=== PATIENT | male | born 1935 | race Caucasian/White ===

== ENCOUNTER 2020-03-04 13:35 | Outpatient (RCR) | payer MEDICARE, SELFPAY ==
--- NOTE | 2020-06-22 | XR_ITS ---
EXAMINATION: XR CHEST CLINICAL INFORMATION: Shortness of breath COMPARISON: None TECHNIQUE: Frontal view of the chest was obtained. FINDINGS: The right lung is hypoexpanded. The left lung is well-expanded. There is prominent bilateral interstitial markings. There is right lower lobe opacity likely pleural effusion with underlying atelectasis. The effusion or thickening extends to the right lung apex. Heart size and pulmonary vascularity is normal. Mild mediastinal shift to the right is noted. There is right central port catheter with its tip in the distal SVC. No gross bony abnormality except for mild spondylosis. XR/XR chest 1V IMPRESSION: Hypoexpanded right lung with ipsilateral mediastinal shift. There is a moderate pleural effusion and/or pleural thickening extending of the medial right lung apex. There is bilateral increase interstitial markings. There is a right central port with its tip in the distal SVC.
--- NOTE | 2020-06-23 | US_ITS ---
PROCEDURE: US CHEST, LEFT CT-GUIDED THORACENTESIS, LEFT CLINICAL INFORMATION: Right pleural effusion on chest x-ray of 06/22/2020. COMPARISON: 06/22/2020 TECHNIQUE: Ultrasound of the left chest and CT-guided left thoracentesis. This CT examination was performed using dose optimization techniques as appropriate, variously including the following: *Automated exposure control. *Adjustment of mA and/or kV according to patient size (this includes techniques or standardized protocols for targeted exams where dose is matched to indication/reason for exam; i.e. extremities or head). *Use of iterative reconstruction technique. DLP: 440 FINDINGS/PROCEDURE: Ultrasound of the left chest was performed which demonstrated some thickened pleura as well as a small amount of fluid with debris. I did not feel that it would be safe to perform thoracentesis under ultrasound and I cannot tell what may be gelatinous material versus free fluid with the debris that was present. Patient was brought to CT at which time there is seen to be minimal right pleural fluid with pleural thickening. There is noted to be a [id number] left pleural effusion which did not show on the chest x-ray. Informed consent was obtained from the patient's daughter prior to the procedure. During this process, the procedure and potential alternatives were explained, along with the intended outcome and benefits. The risks of the procedure, as well as the risk of not doing the procedure, were discussed. The patient's daughter was given the opportunity to ask questions regarding the procedure and appeared competent to make medical decisions. A signed consent form which documents this discussion was placed in the medical record. Using sterile technique and CT guidance, a 5-Wolof Yueh needle was directed from a posterior approach into the left pleural space. A total of 725 mL of non-clotting sanguinous fluid was removed with samples sent for laboratory studies including cytology. Patient tolerated the procedure without difficulty. Right internal jugular port catheter seen in place. There are calcified and noncalcified diffuse bilateral pleural plaques. There is some bronchial wall thickening and mild symmetrical bronchiectasis at the lung bases bilaterally. There are numerous bilateral nodules present. Within the left upper lobe, there is an 8 mm noncalcified nodule density on image 187 of 516. There is an 8 mm noncalcified nodule seen within the left upper lobe on image 202 of 516. There is a 1 cm density seen within the left upper lobe on image 155 of 516. There is a 1.5 cm visceral pleural-based lesion left lower lobe. There are numerous other smaller left lower lobe nodular lesions. Heart normal size. No thoracic aortic aneurysm. Coronary artery calcifications are present. There is mediastinal and hilar lymphadenopathy bilaterally. US/US chest IMPRESSION: Left thoracentesis with removal of 725 mL of non-clotting sanguinous fluid.
[2020-06-23 12:54] LABS: Hematocrit 34.2 % (42-52); Hemoglobin 10.6 g/dl (14.0-18.0); Mean Corpuscular Hemoglobin 23.7 pg (27.0-33.0); Mean Corpuscular Volume 76.3 fL (80-98); Mean Platelet Volume 8.7 fL (9.4-12.4); Platelet Count 273 X10*3/uL (160-400); Red Blood Count 4.48 X10*6/uL (4.60-5.80); Red Cell Distribution Width 15.2 % (11.0-16.0); White Blood Count 7.2 X10*3/uL (4.8-10.8)
[2020-06-23 13:03] LABS: INTERNATIONAL NORM RATIO 1.1 (0.9-1.1); Prothrombin Time 13.2 SEC (10.8-13.0)
[2020-06-23 16:29] LABS: MN% 78.4 %; PMN% 21.6 %; RBC Pleural Fluid 1.599 X10*3/uL; WBC Pleural Fluid 3.723 X10*3/uL
[2020-06-23 18:38] LABS: Lymphocytes Pleural Fluid 32 %; Monocytes Pleural Fluid 38 %; Neutrophils Pleural Fluid 16 %; Other Cells Plerual Fl 14 %
[2020-06-23 20:14] LABS: BF Shift QC OK YES; Man Diluent Bkgrd OK YES
[2020-06-24 11:54] LABS: Albumin Pleural Fluid 3.3; Total Protein Pleural Fluid 5.5
[2020-06-24 11:55] LABS: Amylase Pleural Fluid 39; Glucose Pleural Fluid 8; LDH Pleural Fluid 1767; pH Pleural Fluid 7.29
--- NOTE | 2020-06-28 11:45 | P.DS_ITS ---
DS: Providers Provider Date of Service: 06/29/20 DS: Medications Discharge Medications Home Medications: Previous Rx's Medication Instructions Recorded acetaminophen 650 mg PO Q4H PRN #30 tab 06/28/20 aspirin 81 mg PO DAILY@0900 #30 tab 06/28/20 atorvastatin 10 mg PO DAILY@1600 #30 tab 06/28/20 bisacodyl [Gentle Laxative 10 mg DC DAILY PRN #30 ea 06/28/20 (bisacodyl)] cyanocobalamin (vitamin B-12) 1,000 mcg IM Q30D@1600 #30 ml 06/28/20 divalproex 250 mg PO BID@0900,1700 #30 tab 06/28/20 escitalopram oxalate 5 mg PO DAILY@0800 #30 tab 06/28/20 folic acid 1 mg PO DAILY@0800 #30 tab 06/28/20 heparin, porcine (PF) 500 unit IVFLUSH ONCE PRE 06/28/20 DISCHARGE #30 ml heparin, porcine (PF) [Heparin 50 units IVFLUSH DAILY@1000 #30 ml 06/28/20 LockFlush(Porcine)(PF)] ibuprofen 400 mg PO Q6H PRN #30 tab 06/28/20 ondansetron 4 mg TRANSLINGUAL Q8H PRN #30 tab 06/28/20 polyethylene glycol 3350 17 g PO DAILY@1000 #30 ea 06/28/20 sennosides [Senna Lax] 8.6 mg PO BEDTIME PRN #30 tab 06/28/20 sodium chloride 0.9 % (flush) 5 ml IVFLUSH DAILY@1000 #30 ml 06/28/20 [Normal Saline Flush] sodium chloride 0.9 % (flush) 5 ml IVFLUSH ONCE PRE DISCHARGE 06/28/20 [Normal Saline Flush] #30 ml thiamine mononitrate (vit B1) 100 mg PO DAILY@0800 #30 tab 06/28/20 DS: Summary Hospital Course Hospital Course: Mr. 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 Mr. Randhawa had a fairly uneventful stay with us with the following exceptions: Squamous cell CA: January 12, 2020 he had an excision of a left temporal squamous cell carcinoma by Dr. Williamson. Effusion: In early June 2020 he developed shortness of breath and a new oxygen requirement. His CXR showed an effusion and he had a subsequent CT- guided thoracentesis showing a fluid strongly consistent with an exudate. The CT also revealed a number of abnormalities in the form of nodules. No prior studies were available. No notable cells were found on pathology. The patient is followed by Dr. Rajesh Nixon for his mesothelioma and has a port for past chemo treatment. Dr. Nixon was informed of the new effusion and noted that the patient likely has few options if his disease is progressing. The patient and daughter did have a virtual visit with Dr. Oliveros several months ago. Repeating this may be of use to determine what next steps regarding the patient might be. If the patient has recurrent effusions he may benefit from a pleurax catheter. The patient does need his catheter flushed monthly. Last flush on 06/14/20. Time Spent with Patient Time attestation: Total time spent providing and/or coordinating discharge services: Discharge coordination time: Greater than 30 minutes DS: Data Data Completed and Pending Labs on day of discharge: Laboratory Tests 06/23/20 06/23/20 06/23/20 12:41 12:41 15:45 WBC 7.2 RBC 4.48 L Hgb 10.6 L Hct 34.2 L MCV 76.3 L MCH 23.7 L MCHC 31.0 RDW 15.2 Plt Count 273 MPV 8.7 L Absolute Nucleated RBC 0.000 Nucleated RBC % (auto) 0.0 PT 13.2 H INR 1.1 Pleural pH Pleural WBC Pleural RBC Pleural Neutrophils Pleural Lymphocytes Pleural Monocytes Pleural Other Cells Pleural Total Protein 5.5 Pleural Albumin 3.3 Pleural LDH 1767 Pleural Glucose 8 Pleural Amylase 39 06/23/20 06/23/20 15:45 15:45 WBC RBC Hgb Hct MCV MCH MCHC RDW Plt Count MPV Absolute Nucleated RBC Nucleated RBC % (auto) PT INR Pleural pH 7.29 Pleural WBC 3.723 Pleural RBC 1.599 Pleural Neutrophils 16 Pleural Lymphocytes 32 Pleural Monocytes 38 Pleural Other Cells 14 Pleural Total Protein Pleural Albumin Pleural LDH Pleural Glucose Pleural Amylase Discharge Plan Discharge Attending provider: Rustam Oneil Additional Instructions: see summary sheet Port needs to be flushed monthly. Last performed 06/14/20 Medications: New sennosides [Senna Lax] 8.6 mg Tablet 8.6 mg PO BEDTIME PRN (Reason: Constipation) Qty: 30 RF: 0 acetaminophen 325 mg Tablet 650 mg PO Q4H PRN (Reason: Pain, Mild (Pain Scale 1-3)) Qty: 30 RF: 0 divalproex 250 mg Tablet,Delayed Release (Dr/Ec) 250 mg PO BID@0900,1700 Qty: 30 RF: 0 polyethylene glycol 3350 17 gram Powder In Packet 17 g PO DAILY@1000 Qty: 30 RF: 0 atorvastatin 10 mg Tablet 10 mg PO DAILY@1600 Qty: 30 RF: 0 bisacodyl [Gentle Laxative (bisacodyl)] 10 mg Suppository 10 mg DC DAILY PRN (Reason: Constipation) Qty: 30 RF: 0 cyanocobalamin (vitamin B-12) 1,000 mcg/mL Solution 1,000 mcg IM Q30D@1600 Qty: 30 RF: 0 ibuprofen 400 mg Tablet 400 mg PO Q6H PRN (Reason: Pain, Moderate (Pain Scale 4-6) Qty: 30 RF: 0 aspirin 81 mg Tablet,Chewable 81 mg PO DAILY@0900 Qty: 30 RF: 0 folic acid 1 mg Tablet 1 mg PO DAILY@0800 Qty: 30 RF: 0 ondansetron 4 mg Tablet,Disintegrating 4 mg translingual Q8H PRN (Reason: nausea or vomitting) Qty: 30 RF: 0 sodium chloride 0.9 % (flush) [Normal Saline Flush] Syringe 5 ml IVFLUSH ONCE PRE DISCHARGE Qty: 30 RF: 0 sodium chloride 0.9 % (flush) [Normal Saline Flush] Syringe 5 ml IVFLUSH DAILY@1000 Qty: 30 RF: 0 escitalopram oxalate 5 mg Tablet 5 mg PO DAILY@0800 Qty: 30 RF: 0 heparin, porcine (PF) 100 unit/mL Syringe 500 unit IVFLUSH ONCE PRE DISCHARGE Qty: 30 RF: 0 heparin, porcine (PF) [Heparin LockFlush(Porcine)(PF)] 10 unit/mL Syringe 50 units IVFLUSH DAILY@1000 Qty: 30 RF: 0 thiamine mononitrate (vit B1) 100 mg Tablet 100 mg PO DAILY@0800 Qty: 30 RF: 0
== END 2020-06-29 12:24 | disposition home or self-care (01) ==
LOC: HO.SHU2 13:35
PROVIDERS: Internal Medicine; Visit Provider Hospitalist
DX: Z51.89 Encounter for other specified aftercare (principal)
CPT/HCPCS: 36415; 71045; 76604; 82042; 82150; 82945; 83615; 83986; 84157; 85027; 85610; 89051; 99217; J1642

== ENCOUNTER 2020-06-23 14:14 | Day surgery (SDC) | payer MEDICARE, SELFPAY ==
--- NOTE | 2020-06-23 | CT_ITS ---
PROCEDURE: US CHEST, LEFT CT-GUIDED THORACENTESIS, LEFT CLINICAL INFORMATION: Right pleural effusion on chest x-ray of 06/22/2020. COMPARISON: 06/22/2020 TECHNIQUE: Ultrasound of the left chest and CT-guided left thoracentesis. This CT examination was performed using dose optimization techniques as appropriate, variously including the following: *Automated exposure control. *Adjustment of mA and/or kV according to patient size (this includes techniques or standardized protocols for targeted exams where dose is matched to indication/reason for exam; i.e. extremities or head). *Use of iterative reconstruction technique. DLP: 440 FINDINGS/PROCEDURE: Ultrasound of the left chest was performed which demonstrated some thickened pleura as well as a small amount of fluid with debris. I did not feel that it would be safe to perform thoracentesis under ultrasound and I cannot tell what may be gelatinous material versus free fluid with the debris that was present. Patient was brought to CT at which time there is seen to be minimal right pleural fluid with pleural thickening. There is noted to be a [id number] left pleural effusion which did not show on the chest x-ray. Informed consent was obtained from the patient's daughter prior to the procedure. During this process, the procedure and potential alternatives were explained, along with the intended outcome and benefits. The risks of the procedure, as well as the risk of not doing the procedure, were discussed. The patient's daughter was given the opportunity to ask questions regarding the procedure and appeared competent to make medical decisions. A signed consent form which documents this discussion was placed in the medical record. Using sterile technique and CT guidance, a 5-Wolof Yueh needle was directed from a posterior approach into the left pleural space. A total of 725 mL of non-clotting sanguinous fluid was removed with samples sent for laboratory studies including cytology. Patient tolerated the procedure without difficulty. Right internal jugular port catheter seen in place. There are calcified and noncalcified diffuse bilateral pleural plaques. There is some bronchial wall thickening and mild symmetrical bronchiectasis at the lung bases bilaterally. There are numerous bilateral nodules present. Within the left upper lobe, there is an 8 mm noncalcified nodule density on image 187 of 516. There is an 8 mm noncalcified nodule seen within the left upper lobe on image 202 of 516. There is a 1 cm density seen within the left upper lobe on image 155 of 516. There is a 1.5 cm visceral pleural-based lesion left lower lobe. There are numerous other smaller left lower lobe nodular lesions. Heart normal size. No thoracic aortic aneurysm. Coronary artery calcifications are present. There is mediastinal and hilar lymphadenopathy bilaterally. CT/CT guided thoracentesis IMPRESSION: Left thoracentesis with removal of 725 mL of non-clotting sanguinous fluid.
[2020-06-23 14:16] VITALS: BMI 22.6
[2020-06-23 16:00] VITALS: BP 120/68; PULSE 78; RESP 20; TEMP 36.1; O2SAT 98
[2020-06-23 16:15] VITALS: BP 110/56; PULSE 78; RESP 20; O2SAT 98
[2020-06-23 16:30] VITALS: BP 114/63; PULSE 80; RESP 20; O2SAT 96
== END 2020-06-23 16:52 | disposition home or self-care (01) ==
PROVIDERS: Radiology Diagnostic Radiology; Visit Provider Internal Medicine
DX: R06.02 Shortness of breath (principal); J90 Pleural effusion, not elsewhere classified; C45.9 Mesothelioma, unspecified
CPT/HCPCS: 32555; 88112

== ENCOUNTER 2020-07-09 05:52 | Outpatient (REF) | payer MEDICARE, SELFPAY ==
[2020-07-09 07:44] LABS: MANUAL DIFF FLAG NO
[2020-07-09 07:47] LABS: Basophils Percent Auto 0.4 % (0-2); Eosinophils Absolute Auto 0.3 X10*3/uL (0.0-0.4); Eosinophils Percent Auto 3.6 % (0-4); Hematocrit 30.4 % (42-52); Hemoglobin 9.5 g/dl (14.0-18.0); Imm Gran Abs Auto 0.04 X10*3/uL (0.00-0.03); Imm Gran Pct Auto 0.5 % (0.0-0.4); Lymphocytes Absolute Auto 1.9 X10*3/uL (1.2-4.9); Lymphocytes Percent Auto 23.3 % (20-40); Mean Corpuscular HGB Conc 31.3 g/dl (31.0-36.0); Mean Corpuscular Hemoglobin 23.6 pg (27.0-33.0); Mean Corpuscular Volume 75.6 fL (80-98); Mean Platelet Volume 9.1 fL (9.4-12.4); Monocytes Absolute Auto 1.2 X10*3/uL (0.1-1.2); Monocytes Percent Auto 14.8 % (2-11); Neutrophils Absolute Auto 4.8 X10*3/uL (2.0-8.3); Neutrophils Percent Auto 57.4 % (45-73); Platelet Count 328 X10*3/uL (160-400); Red Blood Count 4.02 X10*6/uL (4.60-5.80); Red Cell Distribution Width 15.4 % (11.0-16.0); White Blood Count 8.3 X10*3/uL (4.8-10.8)
[2020-07-09 08:01] LABS: INTERNATIONAL NORM RATIO 1.2 (0.9-1.1); Prothrombin Time 14.3 SEC (10.8-13.0)
[2020-07-09 08:04] LABS: Partial Thromboplastin Time 32.9 SEC (24.1-38.0)
[2020-07-09 08:45] LABS: Anion Gap 11 (12-20); Blood Urea Nitrogen 21 mg/dL (9-16); Carbon Dioxide 29 mmol/L (22-29); Chloride 102 mmol/L (96-108); Estimated Glomerular Filt Rate > 60; Glucose Fasting 93 mg/dL (60-99); Potassium 4.8 mmol/l (3.3-5.1); Sodium 137 mmol/L (135-145); Triglycerides 94 mg/dL
[2020-07-09 08:48] LABS: Thyroid Stimulating Hormone 5.29 uIU/mL (0.32-4.0)
[2020-07-09 09:14] LABS: Cholesterol 95 mg/dL; HDL Cholesterol 23 mg/dL; LDL Cholesterol Calculated 54 mg/dl
== END 2020-07-09 05:53 | disposition home or self-care (01) ==
LOC: HO.HSH2W 05:52
PROVIDERS: Visit Provider Internal Medicine
DX: C45.9 Mesothelioma, unspecified (principal)
CPT/HCPCS: 36415; 80048; 80061; 84443; 85025; 85610; 85730

== ENCOUNTER 2020-07-14 07:33 | Outpatient (REF) | payer MEDICARE, SELFPAY ==
[2020-07-14 08:44] LABS: MANUAL DIFF FLAG NO
[2020-07-14 08:53] LABS: Basophils Percent Auto 0.4 % (0-2); Eosinophils Absolute Auto 0.2 X10*3/uL (0.0-0.4); Eosinophils Percent Auto 2.4 % (0-4); Hematocrit 28.8 % (42-52); Hemoglobin 8.8 g/dl (14.0-18.0); Imm Gran Abs Auto 0.06 X10*3/uL (0.00-0.03); Imm Gran Pct Auto 0.7 % (0.0-0.4); Lymphocytes Absolute Auto 2.2 X10*3/uL (1.2-4.9); Lymphocytes Percent Auto 23.8 % (20-40); Mean Corpuscular HGB Conc 30.6 g/dl (31.0-36.0); Mean Corpuscular Hemoglobin 22.9 pg (27.0-33.0); Mean Platelet Volume 9.2 fL (9.4-12.4); Monocytes Absolute Auto 1.2 X10*3/uL (0.1-1.2); Monocytes Percent Auto 13.4 % (2-11); Neutrophils Absolute Auto 5.4 X10*3/uL (2.0-8.3); Neutrophils Percent Auto 59.3 % (45-73); Platelet Count 366 X10*3/uL (160-400); Red Blood Count 3.84 X10*6/uL (4.60-5.80); Red Cell Distribution Width 15.6 % (11.0-16.0); White Blood Count 9.2 X10*3/uL (4.8-10.8)
== END 2020-07-14 07:34 | disposition home or self-care (01) ==
LOC: HO.HSH2W 07:33
PROVIDERS: Visit Provider Internal Medicine
DX: D64.9 Anemia, unspecified (principal)
CPT/HCPCS: 36415; 85025

== ENCOUNTER 2020-07-15 11:15 | Outpatient (REF) | payer MEDICARE, SELFPAY ==
[2020-07-15 14:47] LABS: OBS Int Ctl Valid YES; OBS1 NEG (NEG)
[2020-07-15 14:48] LABS: OBS Int Ctl Valid YES; OBS1 NEG (NEG)
== END 2020-07-15 11:16 | disposition home or self-care (01) ==
LOC: HO.HSH2W 11:15
PROVIDERS: Visit Provider Internal Medicine
DX: D64.9 Anemia, unspecified (principal)
CPT/HCPCS: 82272

== ENCOUNTER 2020-07-17 | Outpatient (REF) | payer MEDICARE, SELFPAY ==
[2020-07-19 08:11] LABS: OBS Int Ctl Valid YES; OBS1 NEG (NEG)
== END 2020-07-17 00:01 | disposition home or self-care (01) ==
LOC: HO.HSH2W
PROVIDERS: Visit Provider Internal Medicine
DX: D64.9 Anemia, unspecified (principal)
CPT/HCPCS: 82272

== ENCOUNTER 2020-07-21 07:28 | Outpatient (REF) | payer MEDICARE, SELFPAY ==
[2020-07-21 09:12] LABS: MANUAL DIFF FLAG NO
[2020-07-21 09:28] LABS: Basophils Percent Auto 0.2 % (0-2); Eosinophils Absolute Auto 0.2 X10*3/uL (0.0-0.4); Eosinophils Percent Auto 1.9 % (0-4); Hematocrit 29.3 % (42-52); Hemoglobin 8.7 g/dl (14.0-18.0); Imm Gran Abs Auto 0.08 X10*3/uL (0.00-0.03); Imm Gran Pct Auto 0.7 % (0.0-0.4); Lymphocytes Absolute Auto 2.4 X10*3/uL (1.2-4.9); Lymphocytes Percent Auto 21.2 % (20-40); Mean Corpuscular HGB Conc 29.7 g/dl (31.0-36.0); Mean Corpuscular Hemoglobin 22.7 pg (27.0-33.0); Mean Corpuscular Volume 76.3 fL (80-98); Mean Platelet Volume 9.1 fL (9.4-12.4); Monocytes Absolute Auto 1.4 X10*3/uL (0.1-1.2); Monocytes Percent Auto 12.9 % (2-11); Neutrophils Absolute Auto 7.1 X10*3/uL (2.0-8.3); Neutrophils Percent Auto 63.1 % (45-73); Platelet Count 397 X10*3/uL (160-400); Red Blood Count 3.84 X10*6/uL (4.60-5.80); Red Cell Distribution Width 16.3 % (11.0-16.0); White Blood Count 11.2 X10*3/uL (4.8-10.8)
[2020-07-21 10:16] LABS: Iron 12 mcg/dL (45-160); Percent Iron Saturation 5 % (15-50); Total Iron Binding Capacity 220 mcg/dL (228-428); Unsaturated Iron Binding 208 ug/dL
[2020-07-21 10:38] LABS: Ferritin 643 ng/mL (20-250)
== END 2020-07-21 07:29 | disposition home or self-care (01) ==
LOC: HO.HSH2W 07:28
PROVIDERS: Visit Provider Internal Medicine
DX: D64.9 Anemia, unspecified (principal)
CPT/HCPCS: 36415; 82728; 83540; 85025